=== PATIENT | male | born 1990 | race Caucasian/White ===

== ENCOUNTER 2017-06-06 22:25 | Emergency (ER) | payer OTHER ==
[2017-06-07] MEDS: IBUPROFEN 600 MG TAB PO (01:07)
[2017-06-07] MEDS: PENICILLIN G BENZ 1.2 MIL UNIT SYG IM (01:08)
== END 2017-06-07 02:04 | disposition home or self-care (01) ==
LOC: FTE 22:25
DX: J02.0 Streptococcal pharyngitis (principal)
CPT/HCPCS: 96372; 99284-25

== ENCOUNTER 2018-12-31 09:09 | Emergency (ER) | payer OTHER | END 2018-12-31 09:41 | disposition home or self-care (01) | LOC: E/R 09:09 | DX: G51.0 Bell's palsy (principal) | CPT/HCPCS: 99283; Z7502 ==